=== PATIENT | male | born 1985 | race African-American/Black ===

== ENCOUNTER 2023-08-30 05:11 | Inpatient (IN) | payer SELFPAY ==
[2023-08-30] MEDS ORDERED: Ondansetron PF 4 MG/2 ML Vial ONE (06:02)
[2023-08-30 06:24] LABS: #Eosinphils 0.1 10x3/uL (0.0-0.5); #Monocytes 0.6 10x3/uL (0.0-1.1); #Neutrophils 2.6 10x3/uL (1.5-8.4); %Basophils 0.6 % (0.0-2.0); %Monocytes 13.4 % (0.0-10.0); %Neutrophils 54.8 % (40.0-75.0); Hematocrit 44.3 % (38.8-50.0); Hemoglobin 15.1 g/dL (13.5-17.5); Mean Corpuscular HGB CONC 34.1 g/dL (32.0-36.0); Mean Corpuscular Hemoglobin 28.5 pg (27.0-33.0); Mean Corpuscular Volume 83.7 fl (81.2-95.1); Mean Platelet Volume 11.8 fl (7.4-10.4); Platelet Count 293 10x3/uL (150-450); RBC Distribution Width 13.9 % (11.5-14.5); Red Blood Cell (RBC) Count 5.29 10x6/uL (4.32-5.72); White Blood Cell (WBC) Count 4.7 10x3/uL (3.5-10.5)
[2023-08-30 06:43] LABS: Amphetamine Not Detected (NotDetected); Barbiturates Screen Not Detected (NotDetected); Benzodiazepine Screen Not Detected (NotDetected); Cocaine Metabolite Screen Not Detected (NotDetected); Methadone Not Detected (NotDetected); Methamphetamine Not Detected (NotDetected); Opiate Screen Not Detected (NotDetected); Oxycodone Screen Not Detected (NotDetected); Phencyclidine (PCP) Not Detected (NotDetected); THC/Cannabinoid Screen Not Detected (NotDetected); Tricyclic Screen Not Detected (NotDetected)
[2023-08-30 06:47] LABS: Phosphorus 3.1 mg/dL (2.3-4.7)
[2023-08-30 06:50] LABS: ALT (SGPT) 34 U/L (8-55); AST (SGOT) 24 U/L (5-34); Acetaminophen Less than 10 mcg/mL (10.0-30.0); Albumin 5.1 g/dL (3.5-5.0); Alcohol Less than 10.0 mg/dL (Less than 10); Alkaline Phosphatase 128 U/L (40-110); Anion Gap 26 mmol/L (10-20); BUN (Urea Nitrogen) 10 mg/dL (8.9-20.6); Bilirubin, Total 0.7 mg/dL (0.2-1.2); Calc. Creatinine Clearance 0 mL/min (70-130); Calcium 9.4 mg/dL (7.8-10.44); Carbon Dioxide 10 mmol/L (22-29); Chloride 100 mmol/L (98-107); Estimated GFR 36; Globulin 3.5 g/dL (2.4-3.5); Lipase 27 U/L (8-78); Magnesium 2.1 mg/dL (1.6-2.6); Potassium 5.6 mmol/L (3.5-5.1); Protein, Total 8.6 g/dL (6.0-8.3); Salicylate Less than 8.0 mg/dL (15.0-30.0); Sodium 130 mmol/L (136-145)
[2023-08-30 06:56] LABS: Troponin I Less than 0.010 ng/mL (< 0.028)
[2023-08-30 06:58] LABS: Glucose 517 mg/dL (70-105)
[2023-08-30 07:24] LABS: SARS-CoV-2 NAA Rapid Test Not Detected (NotDetected)
[2023-08-30 07:37] LABS: Actual Bicarbonate (HCO3v) 13.2 mEq/L (22-28); Calcium, Ionized (venous) 1.26 mmol/L (1.16-1.32); Chloride (VBG) 99 mmol/L (98-106); Hematocrit-VBG 50 % (42.0-52.0); Hemoglobin (Hb) 17.1 g/dL (13.2-17.3); Potassium (VBG) 5.98 mmol/L (3.70-5.30); Puncture Site Other Site; RapidComm Collect By CBN; pH (venous) 7.145 (7.32-7.43)
[2023-08-30] MEDS ORDERED: INSULIN REGULAR IN 0.9 % NACL 100 UNITS/100 ML BAG ONE (07:49)
[2023-08-30] MEDS ORDERED: Dextrose 5 %-0.45 % NaCl 1,000 ML IV PRN (08:34)
[2023-08-30] MEDS ORDERED: Dextrose 50% Abboject 50 ML SYRINGE SLOW IVP PRN (08:34)
[2023-08-30] MEDS ORDERED: NS 0.9% w/ 20 MEQ KCL 1,000 ML IV PRN ×2 (08:34)
[2023-08-30] MEDS ORDERED: Electrolyte Replacement Protocol 1 EACH IVPB PRN (08:34)
[2023-08-30] MEDS ORDERED: Sodium Chloride 0.9% 1,000 ML IV PRN ×4 (08:34)
[2023-08-30] MEDS ORDERED: Ondansetron PF 4 MG/2 ML Vial IVP PRN (08:36)
[2023-08-30] MEDS ORDERED: HYDROcodone/Acetaminophen 5/325 mg Tablet PO PRN (08:36)
[2023-08-30] MEDS ORDERED: Acetaminophen 325 MG TAB PO PRN (08:36)
[2023-08-30 08:57] LABS: Bilirubin Neg (Negative); Blood, Urine 50 (Negative); Clarity Clear (Clear); Glucose, Urine (Dipstick) >=1000 mg/dL (Negative); Ketone, Urine 150 mg/dL (Negative); Leukocyte Negative (Negative); Nitrite Negative (Negative); Protein, Urine (Dipstick) 30 mg/dl (Neg-Trace); Urobilinogen Normal mg/dL (Less than 2)
[2023-08-30 09:14] LABS: CAUTI Indications for Culture Pelvic or flank pain; RBC/HPF 0-3 HPF (0-3); Squamous Epithelial None Seen HPF (0-3); WBC/HPF 0-3 HPF (0-3)
[2023-08-30 09:15] LABS: Bacteria/HPF None Seen HPF (None Seen)
[2023-08-30 09:16] LABS: Urine Culture Reflex No No
[2023-08-30 10:16] LABS: Anion Gap 22 mmol/L (10-20); BUN (Urea Nitrogen) 9 mg/dL (8.9-20.6); Calc. Creatinine Clearance 0 mL/min (70-130); Calcium 8.9 mg/dL (7.8-10.44); Carbon Dioxide 11 mmol/L (22-29); Cardiac Risk 7.3 (Less than 4.5); Chloride 107 mmol/L (98-107); Cholesterol 212 mg/dl (< 200 Desired); Estimated GFR 48; Glucose 366 mg/dL (70-105); HDL Cholesterol 29 mg/dL (>60 Neg Risk); LDL Cholesterol, Calculated 149 mg/dL; Magnesium 2.2 mg/dL (1.6-2.6); Phosphorus 1.9 mg/dL (2.3-4.7); Potassium 4.6 mmol/L (3.5-5.1); Sodium 135 mmol/L (136-145); Triglycerides 169 mg/dL (Less than 150)
[2023-08-30] MEDS ORDERED: Electrolyte Replacement Protocol FS PRN (10:30)
[2023-08-30] MEDS ORDERED: HUMULIN R 100 UNITS in Sodium Chloride 0.9% 100 ML IVPB SCH (10:30)
[2023-08-30] MEDS ORDERED: Potassium Phosphate 15 MMOL in Sodium Chloride 0.9% 100 ML IVPB SCH (11:00)
[2023-08-30 11:17] VITALS: BMI 37.1
[2023-08-30] MEDS ORDERED: FLU VACC QS2023-24(6MOS UP)/PF 60 MCG/0.5 ML SYRINGE IM ONE (11:30)
[2023-08-30] MEDS: INSULIN REGULAR IN 0.9 % NACL 100 UNITS in Premix Bag 1 BAG IVPB SCH ×3 (11:50→23:27)
[2023-08-30] MEDS ORDERED: PHOS-NAK 1 PKT PACK PO SCH (12:00)
[2023-08-30] MEDS: D5 1/2 NS w/20 mEq KCL 1,000 ML IV PRN ×3 (12:24→20:20)
[2023-08-30 13:19] LABS: Hemoglobin A1c Greater than 14.0 % (4.0-6.0)
[2023-08-30 15:03] LABS: Anion Gap 20 mmol/L (10-20); BUN (Urea Nitrogen) 7 mg/dL (8.9-20.6); Calc. Creatinine Clearance 105 mL/min (70-130); Calcium 8.5 mg/dL (7.8-10.44); Carbon Dioxide 11 mmol/L (22-29); Chloride 109 mmol/L (98-107); Estimated GFR 54; Glucose 198 mg/dL (70-105); Potassium 3.5 mmol/L (3.5-5.1); Sodium 136 mmol/L (136-145)
[2023-08-30] MEDS ORDERED: Sodium Phosphate 15 MMOL in Sodium Chloride 0.9% 250 ML 250 ML IVPB SCH (15:15)
[2023-08-30 17:24] LABS: Anion Gap 17 mmol/L (10-20); BUN (Urea Nitrogen) 7 mg/dL (8.9-20.6); Calc. Creatinine Clearance 106 mL/min (70-130); Calcium 8.6 mg/dL (7.8-10.44); Carbon Dioxide 14 mmol/L (22-29); Chloride 108 mmol/L (98-107); Estimated GFR 55; Glucose 227 mg/dL (70-105); Potassium 3.7 mmol/L (3.5-5.1); Sodium 135 mmol/L (136-145)
[2023-08-30 19:38] LABS: Magnesium 1.9 mg/dL (1.6-2.6)
[2023-08-30] MEDS: Atorvastatin Calcium 40 MG TAB PO SCH (20:01)
[2023-08-31] MEDS: D5 1/2 NS w/20 mEq KCL 1,000 ML IV PRN ×3 (00:01→08:40)
[2023-08-31 03:41] LABS: #Eosinphils 0.2 10x3/uL (0.0-0.5); #Monocytes 0.4 10x3/uL (0.0-1.1); %Basophils 0.5 % (0.0-2.0); %Eosinophils 4.5 % (0.0-6.0); %Lymphocytes 29.1 % (18.0-47.0); %Neutrophils 54.6 % (40.0-75.0); Hemoglobin 12.4 g/dL (13.5-17.5); Mean Corpuscular HGB CONC 35.4 g/dL (32.0-36.0); Mean Corpuscular Hemoglobin 28.8 pg (27.0-33.0); Mean Corpuscular Volume 81.2 fl (81.2-95.1); Mean Platelet Volume 11.4 fl (7.4-10.4); Platelet Count 253 10x3/uL (150-450); RBC Distribution Width 13.8 % (11.5-14.5); Red Blood Cell (RBC) Count 4.31 10x6/uL (4.32-5.72); White Blood Cell (WBC) Count 3.7 10x3/uL (3.5-10.5)
[2023-08-31] MEDS: INSULIN REGULAR IN 0.9 % NACL 100 UNITS in Premix Bag 1 BAG IVPB SCH ×2 (04:20→09:20)
[2023-08-31 04:21] LABS: Anion Gap 12 mmol/L (10-20)
[2023-08-31 04:22] LABS: Albumin 3.7 g/dL (3.5-5.0); BUN (Urea Nitrogen) 5 mg/dL (8.9-20.6); BUN/Creatinine Ratio 3.68; Calc. Creatinine Clearance 128 mL/min (70-130); Calcium 8.1 mg/dL (7.8-10.44); Carbon Dioxide 14 mmol/L (22-29); Chloride 109 mmol/L (98-107); Estimated GFR 69; Glucose 218 mg/dL (70-105); Phosphorus 1.1 mg/dL (2.3-4.7); Potassium 3.1 mmol/L (3.5-5.1); Sodium 132 mmol/L (136-145)
[2023-08-31] MEDS ORDERED: Potassium Chloride 20 MEQ TAB PO SCH (05:00)
[2023-08-31] MEDS: PHOS-NAK 1 PKT PACK PO SCH ×2 (05:13→07:56)
[2023-08-31] MEDS ORDERED: Glucagon 1 MG/ML KIT IM PRN (09:16)
[2023-08-31] MEDS ORDERED: Dextrose 5% in Water 1,000 ML IV PRN (09:16)
[2023-08-31] MEDS ORDERED: Dextrose 50% Abboject 50 ML SYRINGE SLOW IVP PRN (09:16)
[2023-08-31] MEDS ORDERED: Lantus 1000 UNITS/10 ML VIAL SC SCH (10:00)
[2023-08-31] MEDS ORDERED: Sodium Phosphate 30 MMOL in Sodium Chloride 0.9% 250 ML 250 ML IVPB SCH (10:00)
[2023-08-31] MEDS: HumaLOG 300 UNITS/3 ML VIAL SC PRN ×4 (11:33→21:47)
[2023-08-31 14:31] LABS: Anion Gap 14 mmol/L (10-20); BUN (Urea Nitrogen) 4 mg/dL (8.9-20.6); Calc. Creatinine Clearance 126 mL/min (70-130); Calcium 8.5 mg/dL (7.8-10.44); Carbon Dioxide 15 mmol/L (22-29); Chloride 107 mmol/L (98-107); Estimated GFR 67; Glucose 327 mg/dL (70-105); Phosphorus 2.4 mg/dL (2.3-4.7); Potassium 3.7 mmol/L (3.5-5.1); Sodium 132 mmol/L (136-145)
[2023-08-31 16:36] LABS: Anion Gap 14 mmol/L (10-20); BUN (Urea Nitrogen) 4 mg/dL (8.9-20.6); Calc. Creatinine Clearance 126 mL/min (70-130); Calcium 8.7 mg/dL (7.8-10.44); Carbon Dioxide 16 mmol/L (22-29); Chloride 107 mmol/L (98-107); Estimated GFR 68; Glucose 312 mg/dL (70-105); Magnesium 1.5 mg/dL (1.6-2.6); Phosphorus 2.8 mg/dL (2.3-4.7); Potassium 3.8 mmol/L (3.5-5.1); Sodium 133 mmol/L (136-145)
[2023-08-31] MEDS: HumaLOG 300 UNITS/3 ML VIAL SC SCH (16:50)
[2023-08-31] MEDS ORDERED: Magnesium 2 GM/50 ML(in water) 2 GM in Premix Bag 1 BAG IVPB SCH (21:00)
[2023-08-31] MEDS: Atorvastatin Calcium 40 MG TAB PO SCH (21:48)
[2023-08-31] MEDS: Potassium Chloride 20 MEQ TAB PO SCH (21:48)
[2023-09-01 03:47] LABS: #Eosinphils 0.1 10x3/uL (0.0-0.5); #Monocytes 0.4 10x3/uL (0.0-1.1); %Basophils 0.5 % (0.0-2.0); %Eosinophils 3.7 % (0.0-6.0); %Lymphocytes 29.9 % (18.0-47.0); %Monocytes 11.2 % (0.0-10.0); %Neutrophils 54.4 % (40.0-75.0); Hematocrit 34.8 % (38.8-50.0); Hemoglobin 12.3 g/dL (13.5-17.5); Mean Corpuscular HGB CONC 35.3 g/dL (32.0-36.0); Mean Corpuscular Hemoglobin 28.5 pg (27.0-33.0); Mean Corpuscular Volume 80.7 fl (81.2-95.1); Mean Platelet Volume 11.4 fl (7.4-10.4); Platelet Count 232 10x3/uL (150-450); RBC Distribution Width 13.8 % (11.5-14.5); Red Blood Cell (RBC) Count 4.31 10x6/uL (4.32-5.72); White Blood Cell (WBC) Count 3.8 10x3/uL (3.5-10.5)
[2023-09-01 04:14] LABS: Anion Gap 15 mmol/L (10-20); BUN (Urea Nitrogen) 4 mg/dL (8.9-20.6); Calc. Creatinine Clearance 150 mL/min (70-130); Calcium 8.9 mg/dL (7.8-10.44); Carbon Dioxide 16 mmol/L (22-29); Chloride 105 mmol/L (98-107); Estimated GFR 84; Glucose 339 mg/dL (70-105); Magnesium 1.8 mg/dL (1.6-2.6); Potassium 3.5 mmol/L (3.5-5.1); Sodium 132 mmol/L (136-145)
[2023-09-01] MEDS: HumaLOG 300 UNITS/3 ML VIAL SC PRN ×3 (06:39→21:29)
[2023-09-01] MEDS: HumaLOG 300 UNITS/3 ML VIAL SC SCH ×3 (07:46→17:27)
[2023-09-01] MEDS ORDERED: Magnesium 2 GM/50 ML(in water) 2 GM in Premix Bag 1 BAG IVPB SCH (08:00)
[2023-09-01] MEDS ORDERED: Potassium Chloride 20 MEQ TAB PO SCH (08:00)
[2023-09-01] MEDS ORDERED: Lantus 1000 UNITS/10 ML VIAL SC SCH ×2 (09:00→12:45)
[2023-09-01] MEDS: Potassium Chloride 20 MEQ TAB PO SCH (09:22)
[2023-09-01] MEDS: Atorvastatin Calcium 40 MG TAB PO SCH (20:37)
[2023-09-02 04:19] LABS: #Eosinphils 0.2 10x3/uL (0.0-0.5); #Monocytes 0.5 10x3/uL (0.0-1.1); #Neutrophils 2.1 10x3/uL (1.5-8.4); %Basophils 0.7 % (0.0-2.0); %Eosinophils 3.6 % (0.0-6.0); %Lymphocytes 32.3 % (18.0-47.0); %Monocytes 11.2 % (0.0-10.0); %Neutrophils 51.2 % (40.0-75.0); Hemoglobin 11.5 g/dL (13.5-17.5); Mean Corpuscular HGB CONC 33.8 g/dL (32.0-36.0); Mean Corpuscular Hemoglobin 27.6 pg (27.0-33.0); Mean Corpuscular Volume 81.7 fl (81.2-95.1); Mean Platelet Volume 11.3 fl (7.4-10.4); Platelet Count 262 10x3/uL (150-450); RBC Distribution Width 13.9 % (11.5-14.5); Red Blood Cell (RBC) Count 4.16 10x6/uL (4.32-5.72); White Blood Cell (WBC) Count 4.1 10x3/uL (3.5-10.5)
[2023-09-02 04:38] LABS: Anion Gap 14 mmol/L (10-20); BUN (Urea Nitrogen) 6 mg/dL (8.9-20.6); Calc. Creatinine Clearance 143 mL/min (70-130); Calcium 8.9 mg/dL (7.8-10.44); Carbon Dioxide 21 mmol/L (22-29); Chloride 103 mmol/L (98-107); Estimated GFR 79; Glucose 399 mg/dL (70-105); Potassium 3.7 mmol/L (3.5-5.1); Sodium 134 mmol/L (136-145)
[2023-09-02] MEDS: HumaLOG 300 UNITS/3 ML VIAL SC PRN ×3 (06:31→18:11)
[2023-09-02] MEDS ORDERED: Lantus 1000 UNITS/10 ML VIAL SC SCH ×2 (09:00→11:00)
[2023-09-02] MEDS: HumaLOG 300 UNITS/3 ML VIAL SC SCH ×3 (09:32→18:11)
[2023-09-02] MEDS ORDERED: HumaLOG 300 UNITS/3 ML VIAL SC PRN (13:54)
[2023-09-02] MEDS ORDERED: metFORMIN 500 MG TAB PO SCH (14:00)
[2023-09-02] MEDS: Atorvastatin Calcium 40 MG TAB PO SCH (20:26)
[2023-09-03 04:51] LABS: #Eosinphils 0.1 10x3/uL (0.0-0.5); #Monocytes 0.4 10x3/uL (0.0-1.1); #Neutrophils 2.3 10x3/uL (1.5-8.4); %Basophils 0.7 % (0.0-2.0); %Eosinophils 3.2 % (0.0-6.0); %Lymphocytes 32.3 % (18.0-47.0); %Monocytes 9.5 % (0.0-10.0); %Neutrophils 52.7 % (40.0-75.0); Hematocrit 34.7 % (38.8-50.0); Mean Corpuscular HGB CONC 34.6 g/dL (32.0-36.0); Mean Corpuscular Hemoglobin 28.1 pg (27.0-33.0); Mean Corpuscular Volume 81.3 fl (81.2-95.1); Mean Platelet Volume 11.3 fl (7.4-10.4); Platelet Count 279 10x3/uL (150-450); RBC Distribution Width 13.5 % (11.5-14.5); Red Blood Cell (RBC) Count 4.27 10x6/uL (4.32-5.72); White Blood Cell (WBC) Count 4.3 10x3/uL (3.5-10.5)
[2023-09-03 05:04] LABS: Anion Gap 12 mmol/L (10-20); BUN (Urea Nitrogen) 8 mg/dL (8.9-20.6); Calc. Creatinine Clearance 150 mL/min (70-130); Calcium 8.8 mg/dL (7.8-10.44); Carbon Dioxide 25 mmol/L (22-29); Chloride 98 mmol/L (98-107); Estimated GFR 84; Glucose 319 mg/dL (70-105); Potassium 3.4 mmol/L (3.5-5.1); Sodium 132 mmol/L (136-145)
[2023-09-03] MEDS ORDERED: Potassium Chloride 20 MEQ TAB PO SCH ×2 (05:15→08:15)
[2023-09-03] MEDS: HumaLOG 300 UNITS/3 ML VIAL SC PRN ×2 (06:09→11:58)
[2023-09-03] MEDS ORDERED: metFORMIN 500 MG TAB PO SCH (08:00)
[2023-09-03] MEDS: HumaLOG 300 UNITS/3 ML VIAL SC SCH ×2 (08:02→11:58)
[2023-09-03] MEDS ORDERED: Lantus 1000 UNITS/10 ML VIAL SC SCH (09:00)
[2023-09-03 12:49] VITALS: BP 134/91; TEMP 97.9
== END 2023-09-03 15:25 | disposition home or self-care (01) | DRG 638 ==
LOC: SUATTDRO 05:11 → CSHERS 05:11 → CSHIMCU 07:54 → CSHTELE 09-01 14:14
PROVIDERS: ADMIT Internal Medicine; ATTEND Hospitalist
DX: E11.10 Type 2 diabetes mellitus with ketoacidosis without coma (principal); N17.9 Acute kidney failure, unspecified; F17.210 Nicotine dependence, cigarettes, uncomplicated; E87.5 Hyperkalemia; E86.0 Dehydration; E66.9 Obesity, unspecified; Z20.822 Contact with and (suspected) exposure to COVID-19; E78.00 Pure hypercholesterolemia, unspecified; E83.39 Other disorders of phosphorus metabolism; E87.6 Hypokalemia; Z68.37 Body mass index [BMI] 37.0-37.9, adult
CPT/HCPCS: 36415; 36416; 80048; 80053; 80061; 80069; 80306; 80307; 81001; 82010; 82805; 83036; 83690; 83735; 84100; 84484; 85025; 93005; 96374; J1650; J1815; J2405; J3475; J3480; J3490; J7050

== ENCOUNTER 2025-09-17 01:11 | Emergency (ER) | payer OTHER, SELFPAY ==
[2025-09-17 02:31] LABS: #Basophils 0.03 10x3/uL (0.0-0.2); #Eosinophils 0.20 10x3/uL (0.0-0.5); #Monocytes 0.45 10x3/uL (0.0-1.1); #Neutrophils 2.64 10x3/uL (1.5-8.4); %Basophils 0.6 % (0.0-2.0); %Eosinophils 4.3 % (0.0-6.0); %Lymphocytes 27.9 % (18.0-47.0); %Monocytes 9.7 % (0.0-10.0); %Neutrophils 57.3 % (40.0-75.0); Hematocrit 38.6 % (38.8-50.0); Hemoglobin 13.0 g/dL (13.5-17.5); Mean Corpuscular Hemoglobin 28.3 pg (27.0-33.0); Mean Corpuscular Volume 84.1 fL (81.2-95.1); Platelet Count 330 10x3/uL (150-450); Red Blood Cell (RBC) Count 4.59 10x6/uL (4.32-5.72); White Blood Cell (WBC) Count 4.62 10x3/uL (3.5-10.5)
[2025-09-17 02:40] LABS: Acetaminophen Less than 10 mcg/mL (Less than 10); Salicylate Less than 8.0 mg/dL (Less than 8.0)
[2025-09-17 02:41] LABS: ALT (SGPT) 19 U/L (Less than 45); AST (SGOT) 38 U/L (11-34); Albumin 4.2 g/dL (3.1-4.5); Alkaline Phosphatase 48 U/L (40-110); Anion Gap 15 mmol/L (10-20); BUN (Urea Nitrogen) 22 mg/dL (8.9-20.6); Bilirubin, Total 1.0 mg/dL (0.3-1.2); Calc. Creatinine Clearance 0 mL/min (70-130); Calcium 9.3 mg/dL (7.8-10.44); Carbon Dioxide 22 mmol/L (22-29); Chloride 107 mmol/L (98-107); Globulin 2.8 g/dL (2.4-3.5); Glucose 85 mg/dL (70-105); Potassium 3.3 mmol/L (3.5-5.1); Sodium 141 mmol/L (136-145)
[2025-09-17 05:30] LABS: Glucose, Urine (Dipstick) Normal (Negative); Leukocyte Negative (Negative); Protein, Urine (Dipstick) 30 mg/dl (Neg-Trace); Specific Gravity, Urine 1.025 (1.005-1.030)
[2025-09-17 05:38] LABS: Cocaine Metabolite Screen PRELIM POSITIVE (Negative); THC/Cannabinoid Screen PRELIM POSITIVE (Negative); Tricyclic Screen Negative (Negative)
[2025-09-17 05:50] LABS: Bacteria/HPF 1+ HPF (None Seen); CAUTI Indications for Culture Alt mental st,lethar; RBC/HPF 0-3 HPF (0-3); WBC/HPF 0-3 HPF (0-3)
[2025-09-17 05:51] LABS: Urine Culture Reflex No No
== END 2025-09-17 05:47 | disposition home or self-care (01) ==
LOC: CSHERS 01:11
DX: F10.10 Alcohol abuse, uncomplicated (principal); E11.9 Type 2 diabetes mellitus without complications; F17.210 Nicotine dependence, cigarettes, uncomplicated; Z79.4 Long term (current) use of insulin
CPT/HCPCS: 80053; 80306; 80307; 81001; 85025; 93005; 93010; 96360